=== PATIENT | female | born 1985 | race Caucasian/White ===

== ENCOUNTER 2017-06-16 16:24 | Emergency (ER) | payer OTHER ==
[2017-06-16 16:59] VITALS: BP 146/86
--- NOTE | 2017-06-16 17:12 | UC ---
Respiratory Complaint HPI - HPI Summary HPI Summary: 31 yo female with a 3 day hx of productive cough some sinus tenderness but it feels like it is in her chest no f/c no CP or SOB - History of Current Complaint Chief Complaint: UCRespiratory Stated Complaint: chest cold/cough Time Seen by Provider: 06/16/17 16:46 Hx Obtained From: Patient Hx Last Menstrual Period: May 2017 Onset/Duration: Gradual Onset, Lasting Days Timing: Constant Severity Initially: Moderate Severity Currently: Moderate Pain Intensity: 2 Pain Scale Used: 0-10 Numeric Character: Sputum Description: - green Aggravating Factors: Nothing Alleviating Factors: Nothing Related History: Similar Episode/Dx as: - bronchitis - Allergies/Home Medications Allergies/Adverse Reactions: Allergies Allergy/AdvReac Type Severity Reaction Status Date / Time Naproxen Allergy Swelling Verified 06/16/17 16:30 Of Face,Lips,& Throat Home Medications: Home Medications Bupropion XL (NF) [Wellbutrin XL (NF)] 1 tab QAM 06/16/17 [History Confirmed 08/23] Methadone CHRIS (NF) 1 liq QAM 06/16/17 [History Confirmed 06/16/17] PMH/Surg Hx/FS Hx/Imm Hx Previously Healthy: Yes - hx opiate abuse Cardiovascular History: Hypertension Respiratory History: Bronchitis - has used inhalers in past, Pneumonia - Surgical History Surgical History: Yes Surgery Procedure, Year, and Place: Cholecystectomy, 2013 [facility], hand abcess I & D - Family History Known Family History: Positive: Hypertension, Diabetes - father - Social History Alcohol Use: None Alcohol Amount: none that pt reports Substance Use Type: None Substance Use Comment - Amount & Last Used: (heroin) last used 06/24/16. Today pt states hasn't used x1 year. Smoking Status (MU): Light Every Day Tobacco Smoker Type: Cigarettes Amount Used/How Often: 1 pack every 4 days Length of Time of Smoking/Using Tobacco: 12 Years Have You Smoked in the Last Year: Yes Household Exposure Type: Cigarettes - Immunization History Most Recent Influenza Vaccination: 2016 Most Recent Tetanus Shot: unk Most Recent Pneumonia Vaccination: never Review of Systems Constitutional: Negative Skin: Negative Eyes: Negative ENT: Ear Ache, Sinus Congestion, Sinus Pain/Tenderness Respiratory: Cough Cardiovascular: Negative Gastrointestinal: Negative Genitourinary: Negative Motor: Negative Neurovascular: Negative Musculoskeletal: Negative Neurological: Negative Psychological: Negative All Other Systems Reviewed And Are Negative: Yes Physical Exam Triage Information Reviewed: Yes Appearance: Well-Appearing, No Pain Distress, Well-Nourished Vital Signs: Initial Vital Signs Temp 98.2 F 06/16/17 16:34 Pulse 73 06/16/17 16:34 Resp 18 06/16/17 16:34 BP 146/86 06/16/17 16:34 Pulse Ox 100 06/16/17 16:34 Vital Signs Reviewed: Yes Eyes: Positive: Conjunctiva Clear ENT: Positive: Hearing grossly normal, Nasal congestion, TM bulging. Negative: Tonsillar exudate, Trismus, Muffled/hoarse voice Neck: Positive: Supple, Nontender, No Lymphadenopathy Respiratory: Positive: Lungs clear, Normal breath sounds, No respiratory distress, No accessory muscle use Cardiovascular: Positive: RRR, No Murmur Musculoskeletal: Positive: ROM Intact, No Edema Neurological: Positive: Alert Psychological Exam: Normal Skin Exam: Normal UC Diagnostic Evaluation - Laboratory O2 Sat by Pulse Oximetry: 100 - normal, not hypoxic Respiratory Course/Dx - Differential Dx/Diagnosis Provider Diagnoses: acute bronchitis. serous otitis media Discharge - Discharge Plan Condition: Stable Disposition: HOME Prescriptions: Amoxicillin PO (*) [Amoxicillin 875 MG (*)] 875 mg PO BID #20 tab Fluconazole 150 MG (NF) [Diflucan 150 mg (NF)] 150 mg PO ONCE #1 tab Patient Education Materials: Acute Bronchitis (ED) Forms: *Work Release Referrals: Meli Sparrow [Primary Care Provider] - 4 Days (if not better) Additional Instructions: take diflucan if you develop a yeast infection
== END 2017-06-16 17:20 | disposition home or self-care (01) ==
LOC: UCCORT 16:24
DX: J20.9 Acute bronchitis, unspecified (principal); H65.90 Unspecified nonsuppurative otitis media, unspecified ear; I10 Essential (primary) hypertension; Z90.49 Acquired absence of other specified parts of digestive tract; F17.210 Nicotine dependence, cigarettes, uncomplicated
CPT/HCPCS: 99212; G0463

== ENCOUNTER 2017-07-28 14:39 | Emergency (ER) | payer OTHER | END 2017-07-28 16:23 | disposition left against medical advice (07) | LOC: UCCORT 14:39 | DX: R05 Cough (principal); Z53.21 Procedure and treatment not carried out due to patient leaving prior to being seen by health care provider ==

== ENCOUNTER 2017-07-29 07:47 | Emergency (ER) | payer OTHER ==
[2017-07-29 08:11] VITALS: BP 136/86
[2017-07-29] MEDS ORDERED: predniSONE TAB* 20 MG PO ONE (08:28)
[2017-07-29] MEDS ORDERED: Albuterol/Ipratropium NEB.SOL* Albuterol 2.5 MG/Ipratropium 0.5 MG 3 ML INH ONE (08:29)
--- NOTE | 2017-07-29 08:35 | ED ---
Respiratory - HPI Summary HPI Summary: 31 yr old female with the complaint of coughing. Onset a week ago, associated with some SOB, and wheezing feeling. The patient states she is producing greenish sputum. She has been coughing so much that her chest and low back hurt when coughing. She denies fever and chills. she denies dizziness. She states when she lies down she gets coughing spells and for this reason cannot lay down to sleep the past few nights. She denies leg swelling or pain. The patient reports sinus congestion and post nasal drip as well. - History of Current Complaint Chief Complaint: UCRespiratory Stated Complaint: WHEEZY COUGH FATIGUE Time Seen by Provider: 07/29/17 08:05 - Allergy/Home Medications Allergies/Adverse Reactions: Allergies Allergy/AdvReac Type Severity Reaction Status Date / Time Naproxen Allergy Swelling Verified 07/29/17 07:59 Of Face,Lips,& Throat PMH/Surg Hx/FS Hx/Imm Hx Previously Healthy: Yes Endocrine/Hematology History: Reports: Hx Thyroid Disease Denies: Hx Diabetes Cardiovascular History: Reports: Hx Hypertension Denies: Hx Congestive Heart Failure, Hx Pacemaker/ICD GI History: Reports: Other GI Disorders - gallstones History: Denies: Hx Dialysis, Hx Renal Disease Sensory History: Denies: Hx Hearing Aid Psychiatric History: Reports: Hx Anxiety - per pt report, Hx Attention Deficit Hyperactivity Disorder - ADD per pt report, Hx Depression - per pt report, Hx Substance Abuse Denies: Hx Panic Disorder, Hx Inpatient Treatment - Surgical History Surgery Procedure, Year, and Place: Cholecystectomy, 2013 [facility], [facility] I & D Infectious Disease History: No Infectious Disease History: Denies: Traveled Outside the [place] in Last 30 Days - Family History Known Family History: Positive: Hypertension, Diabetes - father - Social History Alcohol Use: None Alcohol Amount: none that pt reports Substance Use Type: Reports: None Substance Use Comment - Amount & Last Used: (heroin) last used 06/24/16. Today pt states hasn't used x1 year. Smoking Status (MU): Light Every Day Tobacco Smoker Type: Cigarettes Amount Used/How Often: 4-7 cigarettes daily Length of Time of Smoking/Using Tobacco: 12 Years Have You Smoked in the Last Year: Yes Review of Systems Positive: Fatigue. Negative: Fever, Chills Positive: Shortness Of Breath, Cough All Other Systems Reviewed And Are Negative: Yes Physical Exam Triage Information Reviewed: Yes Vital Signs On Initial Exam: Initial Vitals Temp Pulse Resp BP Pulse Ox 97.8 F 74 16 136/86 98 07/29/17 08:02 07/29/17 08:02 07/29/17 08:02 07/29/17 08:02 07/29/17 08:02 Vital Signs Reviewed: Yes Appearance: Positive: Well-Appearing, No Pain Distress Skin: Positive: Warm, Skin Color Reflects Adequate Perfusion Head/Face: Positive: Normal Head/Face Inspection Eyes: Positive: EOMI ENT: Positive: Normal ENT inspection Neck: Positive: Nontender Respiratory/Lung Sounds: Positive: Decreased Breath Sounds. Negative: Rales, Stridor, Tracheal Deviation Cardiovascular: Positive: RRR. Negative: Murmur Abdomen Description: Positive: Nontender Musculoskeletal: Positive: Strength/ROM Intact Neurological: Positive: Sensory/Motor Intact, Alert, Oriented to Person Place, Time, CN Intact II-III Psychiatric: Positive: Normal - Junior Coma Scale Best Eye Response: 4 - Spontaneous Best Motor Response: 6 - Obeys Commands Best Verbal Response: 5 - Oriented Diagnostics - Vital Signs Vital Signs Temp Pulse Resp BP Pulse Ox 07/29/17 08:02 97.8 F 74 16 136/86 98 - Laboratory Lab Statement: Any lab studies that have been ordered have been reviewed, and results considered in the medical decision making process. Disposition - Course Course Of Treatment: 31 yr old female with coughing and relief with neb. Rx with pred, mdi, and amox. FU with PMD - Diagnoses Provider Diagnoses: Asthmatic bronchitis, Sinusitis Discharge - Discharge Plan Condition: Good Disposition: HOME Prescriptions: Albuterol HFA INHALER* [Ventolin HFA Inhaler*] 2 puff INH Q4H PRN #1 mdi PRN Reason: Cough Amoxicillin/Clavulanate TAB* [Augmentin TAB 875*] 875 mg PO BID #20 tab Prednisone 40 mg PO DAILY #8 tab Patient Education Materials: Sinusitis (ED), Acute Bronchitis (ED) Referrals: Meli Sparrow [Primary Care Provider] -
--- NOTE | 2017-07-29 09:04 | RAD ---
INDICATION: Cough, shortness of breath. Hypertension. Fatigue. COMPARISON: November 17, 2014 TECHNIQUE: Dual energy PA and routine lateral views of the chest were obtained. REPORT: Clear lungs and pleural spaces. Negative for pneumothorax. The heart, pulmonary vasculature, and mediastinal contours are unremarkable. Unremarkable osseous structures and soft tissue contours accounting for obese body habitus. IMPRESSION: No evidence for acute intrathoracic disease.
== END 2017-07-29 09:31 | disposition home or self-care (01) ==
LOC: UCCORT 07:47
DX: J45.909 Unspecified asthma, uncomplicated (principal); J32.9 Chronic sinusitis, unspecified; F17.210 Nicotine dependence, cigarettes, uncomplicated; F32.9 Major depressive disorder, single episode, unspecified; F98.8 Other specified behavioral and emotional disorders with onset usually occurring in childhood and adolescence; I10 Essential (primary) hypertension; E07.9 Disorder of thyroid, unspecified; F41.9 Anxiety disorder, unspecified
CPT/HCPCS: 71020; 99212; A9270-GY; G0463; J7512

== ENCOUNTER 2019-03-02 11:51 | Emergency (ER) | payer OTHER ==
[2019-03-02 12:27] VITALS: BP 135/85
--- NOTE | 2019-03-02 12:49 | UC ---
Lower Extremity/Ankle HPI - HPI Summary HPI Summary: Pt presents with c/o sudden onset of left lower leg swelling, tenderness, ulceration and that began after sitting for a prolonged period of time yesterday. Pt has hx of vascular "issues" and is scheduled to see vascular provider in 2 weeks. Has ulcerations on right LE and has reported ulcerations. Pt' RLE has zoë and dressing. Pt declined removal of bandage. - History of Current Complaint Chief Complaint: UCSkin Stated Complaint: SKIN CONCERN - LEFT LEG Time Seen by Provider: 03/02/19 12:23 Hx Obtained From: Patient Hx Last Menstrual Period: 01/2019 ?: No Onset/Duration: Sudden Onset, Lasting Days, Still Present, Worse Since - onset Severity Initially: Moderate Severity Currently: Moderate Pain Intensity: 6 Aggravating Factor(s): Standing, Ambulation Alleviating Factor(s): Nothing Able to Bear Weight: Yes - painful - Risk Factors Gout Risk Factors: Obesity Septic Arthritis Risk Factor: IV Drug Abuse - in recovering - Allergies/Home Medications Allergies/Adverse Reactions: Allergies Allergy/AdvReac Type Severity Reaction Status Date / Time naproxen Allergy Swelling Verified 03/02/19 12:26 Of Face,Lips,& Throat Home Medications: Home Medications cephALEXin [Keflex] 500 mg PO ONCE PRN 03/02/19 [History Confirmed 03/02/19] PMH/Surg Hx/FS Hx/Imm Hx Previously Healthy: Yes Cardiovascular History: Other - unknown vascular disorder - Surgical History Surgical History: Yes Surgery Procedure, Year, and Place: Cholecystectomy, 2013 [facility], hand abcess I & D. leg abscess - Family History Known Family History: Positive: Hypertension, Diabetes - father - Social History Lives: With Family Alcohol Use: None Alcohol Amount: none that pt reports Substance Use Type: Prescribed Substance Use Comment - Amount & Last Used: (heroin) last used 06/24/16. Today pt states hasn't used x1 year. Smoking Status (MU): Light Every Day Tobacco Smoker Type: Cigarettes Amount Used/How Often: 4-7 cigarettes daily Length of Time of Smoking/Using Tobacco: 12 Years Have You Smoked in the Last Year: Yes Household Exposure Type: Cigarettes - Immunization History Most Recent Influenza Vaccination: 2016 Most Recent Tetanus Shot: unk Most Recent Pneumonia Vaccination: never Review of Systems All Other Systems Reviewed And Are Negative: Yes Constitutional: Positive: Negative Skin: Positive: Other - erythematous, lateral ulceration, ~ 5mm in diameter distal lateral fibula, just proximal of malleolus Eyes: Positive: Negative ENT: Positive: Negative Respiratory: Positive: Negative Cardiovascular: Positive: Negative Gastrointestinal: Positive: Negative Genitourinary: Positive: Negative Motor: Positive: Negative Neurovascular: Positive: Negative Musculoskeletal: Positive: Edema, Myalgia, Other: - right LE covered in zoë bandage. LLE erythematous, ulceration ~ 5 mm in diameter, lateral aspect, fluid filled blisters intake, Neurological: Positive: Negative Psychological: Positive: Negative Is Patient Immunocompromised?: No Physical Exam Triage Information Reviewed: Yes Appearance: Well-Appearing Vital Signs: Initial Vital Signs Temp 98.4 F 03/02/19 12:17 Pulse 77 03/02/19 12:17 Resp 18 03/02/19 12:17 BP 135/85 03/02/19 12:17 Pulse Ox 98 03/02/19 12:17 Vital Signs Reviewed: Yes Eye Exam: Normal ENT Exam: Normal ENT: Positive: Hearing grossly normal Dental Exam: Normal Neck exam: Normal Respiratory: Positive: No respiratory distress Musculoskeletal: Positive: Edema @ - right LE covered in zoë bandage. LLE erythematous, ulceration ~ 5 mm in diameter, lateral aspect, fluid filled blisters intake, LLE edematous, non pitting, painful posterior calf Neurological Exam: Normal Psychological Exam: Normal Skin Exam: Other - LLE, erythematous, beginning to weep, Diagnostics - Radiology No standard instances Radiology Interpretation Completed By: Radiologist - IMPRESSION: NO LEFT LOWER EXTREMITY DEEP VEIN THROMBOSIS Lower Extremity Course/Dx - Differential Dx/Diagnosis Differential Diagnosis/HQI/PQRI: Cellulitis, DVT, Phlebitis Provider Diagnosis: Cellulitis, Phlebitis Discharge - Sign-Out/Discharge Documenting (check all that apply): Patient Departure All imaging exams completed and their final reports reviewed: Yes - Discharge Plan Condition: Stable Disposition: HOME Prescriptions: Sulfamethox/Trimethoprim DS* [Bactrim DS 800/160 TAB*] 1 tab PO Q12H #14 tab Patient Education Materials: Cellulitis (ED) Referrals: Danny Stone MD [Primary Care Provider] - If Needed Additional Instructions: Please follow up with your vascular provider as scheduled or earlier if necessary. - Billing Disposition and Condition Condition: STABLE Disposition: Home
== END 2019-03-02 13:17 | disposition home or self-care (01) ==
LOC: UCCORT 11:51
DX: L03.116 Cellulitis of left lower limb (principal); I80.3 Phlebitis and thrombophlebitis of lower extremities, unspecified; F17.210 Nicotine dependence, cigarettes, uncomplicated; Z88.8 Allergy status to other drugs, medicaments and biological substances
CPT/HCPCS: 99212; G0463